=== PATIENT | male | born 1990 | race Caucasian/White ===

== ENCOUNTER 2016-10-14 15:13 | Emergency (ER) | payer SELFPAY ==
[~2016-10-14] VITALS: Ht 182.9 cm; Wt 101.7 kg
[2016-10-14] MEDS ORDERED: ZITHROMAX250 MG PO (15:49)
[2016-10-14 16:01] VITALS: BP 124/74
== END 2016-10-14 16:01 | disposition home or self-care (01) ==
LOC: EME 15:13
DX: H66.91 Otitis media, unspecified, right ear (principal); J02.9 Acute pharyngitis, unspecified; R09.81 Nasal congestion
CPT/HCPCS: 99281; 99283

== ENCOUNTER 2016-10-17 20:08 | Emergency (ER) | payer SELFPAY ==
[~2016-10-17] VITALS: Ht 182.9 cm; Wt 102.4 kg
[~2016-10-17 20:08] MED LIST: ZITHROMAX250 MG PO
[2016-10-17] MEDS ORDERED: CEFTIN250 MG PO (20:57)
[2016-10-17 21:24] VITALS: BP 143/95
== END 2016-10-17 21:25 | disposition home or self-care (01) ==
LOC: EME 20:08
DX: H66.91 Otitis media, unspecified, right ear (principal); H92.02 Otalgia, left ear
CPT/HCPCS: 99281; 99283; J8540

== ENCOUNTER 2017-11-01 11:17 | Emergency (ER) | payer BC ==
[~2017-11-01] VITALS: Ht 177.8 cm; Wt 107.7 kg
[~2017-11-01 11:17] MED LIST changes: +CEFTIN250 MG PO
[2017-11-01 11:48] LABS: HEMATOCRIT 44.4 % (38.0-50.0); HEMOGLOBIN 16.3 G/DL (12.5-16.6); MCH 31.7 PG (29.0-34.0); MCHC 36.7 G/DL (30.0-36.0); MCV 86.2 FL (86-99); PLATELET COUNT 225 K/uL (156-360); RBC DIS.WIDTH-CV 11.9 % (11.8-14.6); RBC DIS.WIDTH-SD 37.8 % (39-53); RED BLOOD COUNT 5.15 M/uL (4.00-5.50); WHITE BLOOD COUNT 7.4 K/uL (4.1-10.2)
[2017-11-01 11:58] LABS: CHLORIDE 104 mEq/L (99-109); POTASSIUM 3.7 mEq/L (3.7-5.4); SODIUM 140 mEq/L (136-147)
[2017-11-01 11:59] LABS: GLUCOSE 109 mg/dL (70-99)
[2017-11-01 12:03] LABS: CREATININE 0.9 mg/dL (0.6-1.3); GFR ESTIMATE (CALCULATED) > 59 mL/min/ (58.99-99999)
[2017-11-01 12:04] LABS: UREA NITROGEN (BUN) 17 mg/dL (9-23)
[2017-11-01 12:08] LABS: TROP-I INTERPRETATION NEGATIVE; TROPONIN-I < 0.01 ng/mL (0.0-0.30)
[2017-11-01 15:01] LABS: TROP-I INTERPRETATION NEGATIVE; TROPONIN-I < 0.01 ng/mL (0.0-0.30)
[2017-11-01 16:09] VITALS: BP 132/67
== END 2017-11-01 16:09 | disposition home or self-care (01) ==
LOC: EME 11:17
PROVIDERS: Physician Assistant
DX: R07.9 Chest pain, unspecified (principal)
CPT/HCPCS: 71046; 80048; 84484; 85027; 93005; 99281; 99284